=== PATIENT | female | born 1955 | race Two or more races ===

== ENCOUNTER 2024-05-29 11:22 | Outpatient (AMB) | payer OTHER, SELFPAY ==
--- NOTE | 2024-05-29 11:24 | A.OFFPC_ITS ---
Vital Signs 05/29/24 11:25 Height 5 ft 1.42 in Weight 110 lb 4 oz BMI 20.5 BP 110/60 Blood Pressure Location Lt brachial Position Sitting Pulse 61 Pulse Source Pulse Oximeter Temp 97.5 F Temp Source Temporal Artery Scan Pulse Oximetry (%) 99 Oxygen Delivery Method Room Air Intake Visit Reasons: Establish Care Intake Note: Patient is a new patient here to establish care for DM, Tremors, Knee pain, Unsteady gait. Transferring care from [facility] . Medical records have been requested and have received. Hybrid Derivatives Trader Required: Yes Hybrid Derivatives Trader Language: Multiple Effect Evaporator Operator Name: Beth (Daughter) Information Interpreted: non-clinical & clinical (pt decline hazardous waste management specialist service, prefer daughter to hazardous waste management specialist.) Industrial Spray Painter: Present Accompanied by: Daughter Allergies No Known Allergies Allergy (Verified 05/29/24 11:46) Medication List - Last Reconciled 05/29/24 by Ofelia Lacy PA-C amlodipine 5 mg PO DAILY blood sugar diagnostic (FreeStyle Lite Strips) Test blood sugar twice a day insulin glargine (Lantus Solostar U-100 Insulin) 10 units subcut BEDTIME lancets (FreeStyle Lancets) test blood sugar twice a day metformin 1,000 mg PO BID Tobacco use date assessed: 05/29/24 Fall risk assessment: No Falls in past year Last assessed Fall Risk: 05/29/24 Dental Screening Dental Screen Date: 05/29/24 Did you have a dental visit in the last 12 months?: Yes Did you have a dental problem in the last 6 months where you did not have access to dental care?: No Was dental information given to patient?: Patient has dentist HPI Establish Care HPI Details 69-year-old female coming to the office for the 1st time. Patient is not known to [facility]. Patient has a past medical history of diabetes mellitus with neuropathy, dyslipidemia and vitamin-D deficiency. Daughter provides translation for duration of this visit, formal interpretation was declined. Presenting with management of chronic conditions and addressing new complaints of knee pain and mobility issues. She has Type 2 Diabetes Mellitus with a history of medication adherence issues, as she has not taken J ardiance for the past three months, and uses insulin at a nightly dose of 10 units. Recent A1c is recorded at 7.9. She presents a history of hypertension, dyslipidemia for which atorvastatin was never received, and nicotine dependence, currently smoking one cigarette per day. Previously confirmed osteoarthritis affecting her left knee has caused persistent pain requiring evaluation for alternative pain management methods. Experiences noticeable difficulty with ambulation, which raises the need for a handicap parking placard. daughter for translation. Per [facility] Last note 10/2023 Amlodipine 5 mg, atorvastatin 40 mg, Jardiance 25 mg, Lantus Solostar 12 units nightly then increase to 15 units nightly but taking 10 units currently, metformin 1000 mg and vitamin D3 colonoscopy: 2015 repeat in 10 years mammogram: completed 2024 [facility] Surgical History H/O colonoscopy No pertinent past surgical history Social History Housing: Apartment Alcohol intake: never Patient Tobacco Use Status: Current everyday Tobacco user Tobacco use type: Cigarette Cigarette Packs Per Day: 0.25 Cigarettes Per Day: 1 e-Cigarette/Vaping Use: Never Used Second Hand Smoke Exposure: No service: No Current occupational status: employed Cognitive needs: Yes (Cane) Hearing needs: Yes Vision needs: Yes (Glasses) Female Reproductive History Menstrual control method: none Questionnaire PHQ-9 Over the last 2 weeks, how often have you been bothered by any of the following problems? 1. Little interest or pleasure in doing things: not at all 2. Feeling down, depressed, or hopeless: not at all 3. Trouble falling or staying asleep, or sleeping too much: not at all 4. Feeling tired or having little energy: not at all 5. Poor appetite or overeating: not at all 6. Feeling bad about yourself - or that you are a failure or have let yourself or your family down: not at all 7. Trouble concentrating on things, such as reading the newspaper or watching television: not at all 8. Moving or speaking so slowly that other people could have noticed. Or the opposite - being so fidgety or restless that you have been moving around a lot more than usual: not at all 9. Thoughts that you would be better off or of hurting yourself in some way: not at all Total score: 0 Depression Screening Interpretation: Negative Depression Screening Done: Yes Source: Developed by Drs. Bony Machado, Dulce Clarke, Mark Juarez and colleagues, with an educational patrice from [employer]. Thrive Questionnaire Date Thrive assessed: 05/29/24 I am a: Patient What is your living situation today?: I have a steady place to live Within the past 12 months, did the food you bought not last and you didn't have the money to get more?: Never true Within the past 12 months, did you worry whether your food would run out before you got money to buy more?: Never true Do you have trouble paying for medicines?: No Do you have trouble getting transportation to medical appointments?: Yes Do you have trouble paying your heating and electricity bill?: No Do you have trouble taking care of your child, family member or friend?: No Do you have trouble with day-to-day activities such as bathing, preparing meals, shopping, managing finances, etc.?: No Are you currently unemployed and looking for a job?: No Are you interested in more education?: Yes Please select the resources that you would like help with: Care for elder or disabled Currently or been in a relationship where the following occur: I choose not to answer THRIVE Score: 1 AUDIT C Alcohol Use Questionnaire (AUDIT-C) 1. How often do you have a drink containing alcohol?: Never Total Score: 0 RADHA-7 AMB Questionnaire RADHA-7 Date RADHA - 7 assessed: 05/29/24 Feeling nervous, anxious, or on edge: 0 = Not at all Not being able to stop or control worryin = Not at all Worrying too much about different things: 0 = Not at all Trouble relaxin = Not at all Being so restless that it is hard to sit still: 0 = Not at all Becoming easily annoyed or irritable: 0 = Not at all Feeling afraid as if something awful might happen: 0 = Not at all Total RADHA-7 score (0-4 normal; 5-9 mild; 10-14 moderate; 15-21 severe): 0 Source: Developed by Drs. Bony Machado, Dulce Clarke, Mark Juarez and colleagues, with an educational patrice from [employer]. RADHA-7 Assessment Billing RADHA-7 Assessment Tool: RADHA-7 Assessment 14001 Review of Systems Const Denies body aches, Denies chills, Denies fever(s) and Denies poor appetite Eyes Reports no additional complaints ENT Denies dizziness Card Denies chest pain, Denies lightheadedness and Denies dyspnea Resp Denies cough and Denies dyspnea GI Denies nausea and Denies vomiting Reports no additional complaints Musc Details: left knee pain Denies abnormal gait Skin/Breast Reports system reviewed and no additional complaints, except as documented Neuro Denies abnormal gait and Denies dizziness Psych Reports no additional complaints Physical exam (Primary Care) Vital Signs: Last Vital Signs Temp 97.5 F 05/29/24 11:25 Oxygen Delivery Method Room Air 05/29/24 11:25 BMI result Body Mass Index 20.5 BMI Assessment/Plan discussion: Low BMI Low, Plan discussed: lifestyle, increase calorie intake and dietary Tobacco/Smoking Status: Tobacco use Status Patient Tobacco Use Status Never used Tobacco 05/29/24 11:24 Tobacco cessation counseling provided: Yes Items discussed: Nicotine replacement Relapse Prevention: discussed extending NRT and discussed dietary, exercise and/or lifestyle changes CPT code: Less than 3 minutes Depression Screening Interpretation: Negative Currently or been in a relationship where the following occur: I choose not to answer Const General: cooperative, healthy appearing, comfortable and no acute distress Orientation/consciousness: patient oriented x3 HENMT Head: Yes normocephalic Ears: hearing grossly normal bilaterally General nose exam: Normal external nose present Eyes General: appearance normal, both eyes and all related structures Conjunctivae: conjunctivae normal Neck Neck: Yes full ROM and Yes no lymphadenopathy Resp Effort & Inspection: normal respiratory effort Auscultation: clear to auscultation bilaterally, no crackles, no rales, no rhonchi and no wheezes Cardio Rate: regular rate Rhythm: regular rhythm Skin General skin exam: no rashes or lesions noted Neuro General: patient oriented x3 Gait exam (Neuro): Normal gait present Extrem General: Yes normal to inspection, Yes full ROM and No edema Psych Affect: normal affect Attitude: cooperative Insight: Good insight present (Psych) Judgement: Good judgement present (Psych) Results AMB Hemoglobin A1c AMB Hemoglobin A1c 7.9 % Last Edit by ALLEN Toledo on 05/29/24 11:55 Coding Level of Care Code New Pt Level 4 (18947) Diagnoses Diabetes mellitus E11.9 Diabetic neuropathy E11.40 Dyslipidemia E78.5 Vitamin D deficiency E55.9 Osteoarthritis of left knee M17.12 Underweight R63.6 Poor appetite R63.0 Tobacco use disorder F17.200 Additional Codes RADHA-7 Assessment Billing - RADHA-7 Assessment Tool: RADHA-7 Assessment 11882 ([id number]) Assessment & Plan Assessment & Plan (1) Diabetes mellitus: Code(s): E11.9 - Type 2 diabetes mellitus without complications Category: Medical Plan: Decrease the amount of carbohydrates such as pasta, bread, rice, and potatoes and limit the amount of sweets. Although fruits are generally healthy they s hould be eaten in moderation as they are still high in sugar. Hemoglobin A1c goal of less than 7%. The patient currently having A1c of 7.8%. Has been without Jardiance for 3 months plan to restart on Jardiance 25 mg, continue on insulin 10 units at nighttime and metformin 1000 mg twice daily. Repeat A1c in 3 months. (2) Diabetic neuropathy: Code(s): E11.40 - Type 2 diabetes mellitus with diabetic neuropathy, unspecified Category: Medical Plan: Advised good control of blood sugars. Patient has difficulty walking long distances due to diabetic neuropathy plan to obtain handicap placard. (3) Dyslipidemia: Code(s): E78.5 - Hyperlipidemia, unspecified Category: Medical Plan: Avoid foods that are high in cholesterol such as red meat, fried foods, eggs and baked goods. Triglyceride goal of less than 150 and LDL goal of less than 100. Started on atorvastatin 40 mg. ordered for repeat blood work. (4) Vitamin D deficiency: Code(s): E55.9 - Vitamin D deficiency, unspecified Category: Medical Plan: Ordered for updated blood work, not currently taking supplementation. (5) Osteoarthritis of left knee: Code(s): M17.12 - Unilateral primary osteoarthritis, left knee Category: Medical Plan: Patient having left knee pain last note from [facility] consistent with osteoarthritis of left knee. Referral was placed to orthopedics for possible injections. (6) Underweight: Code(s): R63.6 - Underweight Category: Medical Plan: Patient has poor appetite difficulty gaining weight. Prescription for Glucerna sent to pharmacy (7) Poor appetite: Code(s): R63.0 - Anorexia Category: Medical Plan: See above (8) Tobacco use disorder: Code(s): F17.200 - Nicotine dependence, unspecified, uncomplicated Category: Medical Plan: Smoking cigarettes and the use of tobacco can be harmful. We discussed the importance of stopping and options to aid in smoking cessation. Declines the need for nicotine replacement therapy at this time. Plan I will prescribe Jardiance and atorvastatin to better manage her diabetes and cholesterol levels. Continues with 10 units of insulin at night and metformin 1000 mg twice daily. The plan includes reinforcing lifestyle modifications for her diet and smoking cessation. As her knee pain is directly affecting her mobility and quality of life, I have referred her to orthopedics to evaluate non-cortisone injections as a possible intervention, reducing the risk of increased blood glucose levels. A bone density scan has been ordered to assess osteoporosis risk, and we addressed her need for a handicap placard due to mobility difficulties. Follow-up testing for blood work is necessary prior to her next visit to monitor the effectiveness of her current treatment plan. This note was constructed using voice recognition software. While every effort has been made to ensure accuracy and director payment, still areas may have been included sometimes these areas may affect the content or meeting of the given symptoms. Total time spent caring for the patient today was 30 minutes. This includes time spent before the visit reviewing the chart, time spent during the visit, and time spent after the visit and documentation. Patient was informed and verbally consented to the use of an ambient scribe for clinic note documentation during this visit. Orders: Orders Complete Blood Count Auto Diff Today Z00.00 - Encounter for general adult medical examination without abnormal findings Free T4 (Free Thyroxine) Today Z00.00 - Encounter for general adult medical examination without abnormal findings TSH reflex Free T4 Today Z00.00 - Encounter for general adult medical examination without abnormal findings AMB Hemoglobin A1c Today E11.9 - Type 2 diabetes mellitus without complications Comprehensive Met. Panel Today Z00.00 - Encounter for general adult medical examination without abnormal findings Vitamin B12 and Folate Today Z00.00 - Encounter for general adult medical examination without abnormal findings Vitamin D 25-OH Total Today Z00.00 - Encounter for general adult medical examin ation without abnormal findings Lipid Panel Today E78.00 - Pure hypercholesterolemia, unspecified XR DEXA axial skeleton Today Z78.0 - Asymptomatic menopausal state Referrals Orthopedics Referral M17.12 - Unilateral primary osteoarthritis, left knee Medications: New atorvastatin 40 mg PO BEDTIME 90 tabs 2RF empagliflozin (Jardiance) 25 mg PO DAILY 90 tabs 1RF insulin glargine (Lantus Solostar U-100 Insulin) 10 units (0.1 mL) subcut BEDTIME 15 mL 2RF blood sugar diagnostic (FreeStyle Lite Strips) Test blood sugar twice a day 100 ea 2RF lancets (FreeStyle Lancets) test blood sugar twice a day 100 ea 2RF nut.tx.gluc.intol,lac-free,soy (Glucerna Shake oral liquid) QID with meals for supplementation 1 ea PO QID 1,422 mL 4RF R63.0 - Anorexia, R63.6 - Underweight amlodipine 5 mg PO DAILY 90 tabs 2RF metformin 1,000 mg PO BID 90 days 180 tabs 2RF
[2024-05-29 11:25] VITALS: BP 110/60; PULSE 61; TEMP 36.4; O2SAT 99; BMI 20.5
== END 2024-05-29 12:12 | disposition home or self-care (01) ==
LOC: HO.HMCH 11:23
PROVIDERS: PCP Internal Medicine
DX: E11.40 Type 2 diabetes mellitus with diabetic neuropathy, unspecified (principal); E78.5 Hyperlipidemia, unspecified; E55.9 Vitamin D deficiency, unspecified; M17.12 Unilateral primary osteoarthritis, left knee; R63.6 Underweight; R63.0 Anorexia; F17.200 Nicotine dependence, unspecified, uncomplicated

== ENCOUNTER → 2024-05-29 11:22 | Outpatient (BNVA) | payer OTHER, SELFPAY | PROVIDERS: PCP Internal Medicine | DX: E11.40 Type 2 diabetes mellitus with diabetic neuropathy, unspecified (principal); E78.5 Hyperlipidemia, unspecified; E55.9 Vitamin D deficiency, unspecified; M17.12 Unilateral primary osteoarthritis, left knee; R63.6 Underweight; R63.0 Anorexia; F17.200 Nicotine dependence, unspecified, uncomplicated; Z71.6 Tobacco abuse counseling | CPT/HCPCS: 83036; 96127; 99202 ==

== ENCOUNTER 2024-07-02 10:29 | Outpatient (REF) | payer OTHER, SELFPAY ==
--- NOTE | ~2024-07-02 | MM_ITS ---
EXAMINATION: DXA BONE DENSITY AXIAL HISTORY: Z78.0 - Asymptomatic menopausal state TECHNIQUE: [employer] Dual energy absorptiometry (DEXA) of the lumbar spine, total left hip, and femoral neck was performed. COMPARISON: There are no prior studies for comparison. FINDINGS: The bone mineral density of the lumbar spine is 1.062 with a T-score of -1.0, and a Z-score of 1.2. This is indicative of normal bone mineral density. The bone mineral density of the left total hip is 0.679 with a T-score of -2.6, and a Z-score of -0.8. This is indicative of osteoporosis. The bone mineral density of the left femoral neck is 0.625 with a T-score of -3.0, and a Z-score of -1.0. This is indicative of osteoporosis. FRACTURE RISK: The FRAX index suggests a risk of major osteoporotic fracture of 9.8%, and of hip fracture 3.2%. MM/XR DEXA axial skeleton IMPRESSION: Based on bone mineral density, and according to World Health Organization (WHO) criteria, the diagnosis is consistent with osteoporosis. All bone density values are in grams per centimeter squared (g/cm2). Statistically, 68% of repeat scans fall within 1 SD (+/- 0.010 g/cm2 for AP spine L1-L4) and 1 SD (+/- 0.012 g/cm2 for femur total) FRAX is a trademark of the [employer] Metabolic Bone Disease, a World Health Organization (WHO) Collaborating Center. Electronically signed by: Bony Villa MD 07/02/2024 11:22 AM EDT
== END 2024-07-02 10:30 | disposition home or self-care (01) ==
LOC: HO.MAMMO 10:29
DX: Z13.820 Encounter for screening for osteoporosis (principal); Z78.0 Asymptomatic menopausal state
CPT/HCPCS: 77080

== ENCOUNTER → 2024-07-02 10:33 | Outpatient (BNV) | payer OTHER, SELFPAY | PROVIDERS: Visit Provider Radiology Diagnostic Radiology | DX: E28.39 Other primary ovarian failure (principal) | CPT/HCPCS: 77080 ==

== ENCOUNTER 2024-07-09 11:09 | Outpatient (REF) | payer OTHER, SELFPAY ==
[2024-07-09 11:28] LABS: MANUAL DIFF FLAG NO
[2024-07-09 11:50] LABS: Basophils Percent Auto 0.3 % (0-2); Eosinophils Absolute Auto 0.1 X10*3/uL (0.0-0.4); Eosinophils Percent Auto 1.2 % (0-4); Hematocrit 43.3 % (37.0-47.0); Hemoglobin 14.3 g/dl (12.0-16.0); Imm Gran Abs Auto 0.03 X10*3/uL (0.00-0.03); Imm Gran Pct Auto 0.3 % (0.0-0.4); Lymphocytes Absolute Auto 2.7 X10*3/uL (1.2-4.9); Lymphocytes Percent Auto 27.9 % (20-40); Mean Corpuscular Hemoglobin 29.1 pg (27.0-33.0); Mean Corpuscular Volume 88.2 fL (80.0-98.0); Monocytes Absolute Auto 0.6 X10*3/uL (0.1-1.2); Monocytes Percent Auto 6.2 % (2-11); Neutrophils Absolute Auto 6.2 x10*3/uL (2.0-8.3); Neutrophils Percent Auto 64.1 % (45-73); Platelet Count 373 X10*3/uL (160-400); Red Blood Count 4.91 X10*6/uL (4.20-5.50); White Blood Count 9.7 X10*3/uL (4.8-10.8)
[2024-07-09 13:00] LABS: Folate 12.6 ng/mL (> or = 4.0); Vitamin B12 624 pg/mL (200-900)
[2024-07-09 13:15] LABS: Alanine Aminotransferase 19 U/L (0-31); Albumin Level 4.4 g/dL (3.5-5.0); Alkaline Phosphatase 90 U/L (39-117); Anion Gap 14 (12-20); Aspartate Amino Transferase 16 U/L (5-31); Bilirubin Total 0.3 mg/dL (0.0-1.0); Blood Urea Nitrogen 18 mg/dL (9-16); Calcium 10.1 mg/dL (8.4-10.2); Carbon Dioxide 27 mmol/L (22-29); Chloride 105 mmol/L (96-108); Cholesterol 223 mg/dL (<200); Estimated Glomerular Filt Rate > 60; Free T4 (Free Thyroxine) 1.04 ng/dL (0.71-1.85); Glucose Random 195 mg/dL (60-115); HDL Cholesterol 37 mg/dL (>40); LDL Cholesterol Calculated 147 mg/dL (<100); Potassium 4.7 mmol/L (3.3-5.1); Sodium 141 mmol/L (135-145); TSH reflex Free T4 1.75 uIU/mL (0.32-4.0); Total Protein 7.7 g/dL (6.5-8.0); Triglycerides 199 mg/dL (<150)
== END 2024-07-09 11:10 | disposition home or self-care (01) ==
LOC: HO.LAB 11:09
PROVIDERS: Visit Provider Physician Assistant
DX: Z00.00 Encounter for general adult medical examination without abnormal findings (principal); E78.00 Pure hypercholesterolemia, unspecified
CPT/HCPCS: 36415; 80053; 80061; 82306; 82607; 82746; 84439; 84443; 85025

== ENCOUNTER 2024-07-31 08:35 | Outpatient (REF) | payer OTHER, SELFPAY ==
--- NOTE | ~2024-07-31 | XR_ITS ---
CLINICAL HISTORY: M25.569 - Pain in unspecified knee 3 view left knee Comparison: None Findings: Lateral positioning of the patella with lateral tilt as can be seen with patellofemoral tracking syndrome. No acute displaced fracture. No dislocation. Mild articular surface irregularity suggestive medial patellar facet. Moderate effusion present. [place] [employer] osteoarthritis of the left knee. Degenerative changes include partially imaged contralateral knee in the frontal radiograph. No radiopaque foreign body. IMPRESSION: 1. Lerhxpgo-ga-qdcxxe osteoarthritis of the left knee. 2. Moderate effusion present. This document has been electronically signed by: John Espitia MD on 08/01/2024 22:10:00
== END 2024-07-31 08:36 | disposition home or self-care (01) ==
LOC: HO.HOSX 08:35
PROVIDERS: Visit Provider Physician Assistant
DX: M25.562 Pain in left knee (principal); M17.12 Unilateral primary osteoarthritis, left knee; E11.40 Type 2 diabetes mellitus with diabetic neuropathy, unspecified
CPT/HCPCS: 73562; 99202

== ENCOUNTER 2024-07-31 10:57 | Outpatient (AMB) | payer OTHER, SELFPAY ==
[2024-07-31 11:06] VITALS: BMI 20.5
--- NOTE | 2024-07-31 11:06 | A.OFFVIS_ITS ---
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 Patient states pain started over 5 years ago, primarily affecting the posterior aspect of the left knee, radiating down left calf. Patient complains of numbness and tingling in lower left leg. Patient reports history of multiple falls, unsure if that is contributing to her pain. Per patient report, no physical therapy, however she has taken Aleve and ibuprofen without relief, diclofenac gel with temporary relief of pain. 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 Patient states pain started over 5 years ago, primarily affecting the posterior aspect of the left knee, radiating down left calf. Patient complains of numbness and tingling in lower left leg. Patient reports history of multiple falls, unsure if that is contributing to her pain. Per patient report, no physical therapy, however she has taken Aleve and ibuprofen without relief, diclofenac gel with temporary relief of pain. [facility] Surgical History H/O colonoscopy No pertinent past surgical history Social History Housing: Apartment Alcohol intake: never Patient Tobacco Use Status: Current everyday Tobacco user Tobacco use type: Cigarette Cigarette Packs Per Day: 0.25 Cigarettes Per Day: 1 e-Cigarette/Vaping Use: Never Used Second Hand Smoke Exposure: No service: No Current occupational status: employed Cognitive needs: Yes (Cane) Hearing needs: Yes Vision needs: Yes (Glasses) Physical Exam Vital Signs: BMI result Body Mass Index 20.5 Extrem Other: There is lateral retropatellar tenderness to palpation and mild medial joint line tenderness but overall minimal. Results Reviewed Results Reviewed: Mild patellofemoral arthritis. Otherwise unremarkable radiographs Assessment & Plan Assessment & Plan (1) Osteoarthritis of left knee: Code(s): M17.12 - Unilateral primary osteoarthritis, left knee Category: Medical Plan: This is a 69-year-old woman with left knee pain. She has some patellofemoral arthritis. She also has bilateral lower extremity diabetic neuropathy. We discussed treatment options including injections and physical therapy. I do not think she is a surgical candidate at this point. She understands this. We will order the physical therapy and she may follow up as needed. (2) Diabetic neuropathy: Code(s): E11.40 - Type 2 diabetes mellitus with diabetic neuropathy, unspecified Category: Medical Plan: Plan Physical Therapy Orders: Orders XR knee LT 3V 07/31/24 M25.562 - Pain in left knee PT Evaluation and Treatment Today E11.40 - Type 2 diabetes mellitus with diabetic neuropathy, unspecified, M17.12 - Unilateral primary osteoarthritis, left knee Patient Instructions: Contact [facility] to schedule Coding Level of Care Code New Pt Level 3 (44279) Diagnoses Osteoarthritis of left knee M17.12 Diabetic neuropathy E11.40
== END 2024-07-31 12:25 | disposition home or self-care (01) ==
LOC: HO.HOS 10:58
PROVIDERS: Visit Provider Orthopaedic Surgery
DX: M17.12 Unilateral primary osteoarthritis, left knee (principal); E11.40 Type 2 diabetes mellitus with diabetic neuropathy, unspecified
CPT/HCPCS: 99203

== ENCOUNTER → 2024-07-31 11:01 | Outpatient (BNV) | payer OTHER, SELFPAY | PROVIDERS: Visit Provider Radiology Neuroradiology | DX: M17.12 Unilateral primary osteoarthritis, left knee (principal) | CPT/HCPCS: 73562 ==

== ENCOUNTER 2024-08-10 08:03 | Outpatient (AMB) | payer OTHER, SELFPAY ==
--- NOTE | 2024-08-10 08:15 | A.OFFPC_ITS ---
Vital Signs 08/10/24 08:16 Height 5 ft 1.42 in Weight 111 lb 2 oz BMI 20.7 BP 100/60 Blood Pressure Location Lt brachial Position Sitting Pulse 59 Pulse Source Pulse Oximeter Temp 96.9 F Temp Source Temporal Artery Scan Pulse Oximetry (%) 99 Oxygen Delivery Method Room Air Intake Visit Reasons: f/u DM and HLD Intake Note: Patient is here to follow up on DM, HLD. 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 prefer daughter to translate for her) Second Vp Hr Assessment: Present Accompanied by: Daughter Allergies No Known Allergies Allergy (Verified 08/10/24 08:21) Medication List - Last Reconciled 08/10/24 by Ofelia Lacy PA-C amlodipine 5 mg PO DAILY atorvastatin 80 mg PO BEDTIME blood sugar diagnostic (FreeStyle Lite Strips) Test blood sugar twice a day empagliflozin (Jardiance) 25 mg PO DAILY insulin glargine (Lantus Solostar U-100 Insulin) 10 units (0.1 mL) subcut BEDTIME lancets (FreeStyle Lancets) test blood sugar twice a day metformin 1,000 mg PO BID 90 days nut.tx.gluc.intol,lac-free,soy (Glucerna Shake oral liquid) 1 ea PO QID Tobacco use date assessed: 08/10/24 Fall risk assessment: No Falls in past year Last assessed Fall Risk: 08/10/24 Dental Screening Dental Screen Date: 05/29/24 HPI f/u DM and HLD HPI Details 69-year-old female with past medical his tory diabetes mellitus with neuropathy, dyslipidemia, tobacco use disorder and osteoporosis last seen 05/2024 coming in for follow up.? In review of the notes, patient was seen by Orthopedics 07/2024 surgical candidate in regards to osteoarthritis of left knee recommended physical therapy and follow up as needed. Daughter provides translation today for the appointment, formal interpretation was declined. Presenting for management of chronic conditions including hypertension, hyperlipidemia, and type 2 diabetes mellitus. Osteoarthritis of the knee is managed with physical therapy; injections avoided due to potential impact on blood sugar levels. Currently on amlodipine; blood pressures at home are low, leading to a reduction in medication dosage. LDL cholesterol at 147 mg/dL; atorvastatin dose increased to 80 mg. History of elevated blood sugars, A1c at 7.9% not due for A1c today. Patient denies any highs above 200 or lows below 100. [facility] Surgical History H/O colonoscopy No pertinent past surgical history Social History Housing: Apartment Alcohol intake: never Patient Tobacco Use Status: Current everyday Tobacco user Tobacco use type: Cigarette Cigarette Packs Per Day: 0.25 Cigarettes Per Day: 4 e-Cigarette/Vaping Use: Never Used Second Hand Smoke Exposure: Yes service: No Current occupational status: employed Cognitive needs: Yes (Cane) Hearing needs: Yes Vision needs: Yes (Glasses) Questionnaire Thrive Questionnaire Date Thrive assessed: 05/29/24 I am a: Patient What is your living situation today?: I have a steady place to live Within the past 12 months, did the food you bought not last and you didn't have the money to get more?: Never true Within the past 12 months, did you worry whether your food would run out before you got money to buy more?: Never true Do you have trouble paying for medicines?: No Do you have trouble getting transportation to medical appointments?: Yes Do you have trouble paying your heating and electricity bill?: No Do you have trouble taking care of your child, family member or friend?: No Do you have trouble with day-to-day activities such as bathing, preparing meals, shopping, managing finances, etc.?: No Are you currently unemployed and looking for a job?: No Are you interested in more education?: Yes Please select the resources that you would like help with: Care for elder or disabled Currently or been in a relationship where the following occur: I choose not to answer THRIVE Score: 1 RADHA-7 AMB Questionnaire RADHA-7 Date RADHA - 7 assessed: 05/29/24 Source: Developed by Drs. oBny Machado, Dulce Clarke, Mark Juarez and colleagues, with an educational patrice from [employer]. Review of Systems Const Denies body aches, Denies chills, Denies fever(s), Denies headache(s) and Denies poor appetite Eyes Reports no additional complaints ENT Denies dizziness and Denies headache(s) Card Denies chest pain, Denies lightheadedness and Denies dyspnea Resp Denies dyspnea GI Denies abdominal pain, Denies nausea and Denies vomiting Reports no additional complaints Musc Reports no additional complaints and Denies abnormal gait Skin/Breast Reports system reviewed and no additional complaints, except as documented Neuro Denies abnormal gait, Denies dizziness and Denies headache(s) Psych Reports no additional complaints Physical exam (Primary Care) Vital Signs: Last Vital Signs Temp 96.9 F 08/10/24 08:16 Oxygen Delivery Method Room Air 08/10/24 08:16 BMI result Body Mass Index 20.7 Tobacco/Smoking Status: Tobacco use Status Tobacco use date assessed 05/29/24 08/10/24 08:15 Patient Tobacco Use Status Current everyday Tobacco 08/10/24 08:20 Tobacco use type Cigarette 08/10/24 08:20 e-Cigarette/Vaping Use Never Used 08/10/24 08:20 Thrive Assessment: Date of Thrive Assessment Date Thrive assessed 05/29/24 08/10/24 08:15 Currently or been in a relationship where the following occur: I choose not to answer Const General: cooperative, healthy appearing, comfortable and no acute distress Orientation/consciousness: patient oriented x3 HENMT Head: Yes normocephalic Ears: hearing grossly normal bilaterally General nose exam: Normal external nose present Eyes General: appearance normal, both eyes and all related structures Conjunctivae: conjunctivae normal Neck Neck: Yes full ROM and Yes no lymphadenopathy Resp Effort & Inspection: normal respiratory effort Auscultation: clear to auscultation bilaterally, no crackles, no rales, no rhonchi and no wheezes Cardio Rate: regular rate Rhythm: regular rhythm Skin General skin exam: no rashes or lesions noted Neuro General: patient oriented x3 Gait exam (Neuro): Normal gait present Extrem General: Yes normal to inspection, Yes full ROM and No edema Psych Affect: normal affect Attitude: cooperative Insight: Good insight present (Psych) Judgement: Good judgement present (Psych) Coding Level of Care Code Est Pt Level 4 (19589) Diagnoses Dyslipidemia E78.5 Diabetes mellitus E11.9 Underweight R63.6 Tobacco use disorder F17.200 Hypertension I10 Assessment & Plan Assessment & Plan (1) Dyslipidemia: Code(s): E78.5 - Hyperlipidemia, unspecified Category: Medical Plan: Avoid foods that are high in cholesterol such as red meat, fried foods, eggs and baked goods. Triglyceride goal of less than 150 and LDL goal of less than 100. Recent increase in atorvastatin to 80 mg in June. Plan to repeat cholesterol in 2 months an appointment to follow (2) Diabetes mellitus: Code(s): E11.9 - Type 2 diabetes mellitus without complications Category: Medical Plan: Decrease the amount of carbohydrates such as pasta, bread, rice, and potatoes and limit the amount of sweets. Although fruits are generally healthy they should be eaten in moderation as they are still high in sugar. Hemoglobin A1c goal of less than 7%. Last A1c 7.9% she is not due today plan to follow up again in 2 months. Advised patient to bring glucometer to next visit (3) Underweight: Code(s): R63.6 - Underweight Category: Medical Plan: Healthy diet and regular exercise is encouraged. (4) Tobacco use disorder: Code(s): F17.200 - Nicotine dependence, unspecified, uncomplicated Category: Medical Plan: Smoking cigarettes and the use of tobacco can be harmful. We discussed the importance of stopping and options to aid in smoking cessation. Declining brenda atment today (5) Hypertension: Code(s): I10 - Essential (primary) hypertension Category: Medical Plan: Patient on amlodipine from last PCP her blood pressure in the office is 100/60 today. She does routinely take her blood pressures at home that are in the lower range but denies any values less than 100 systolic and 60 diastolic. Plan to decrease amlodipine to 2.5 mg today and follow up in 2 months. Bring log of blood pressures to next visit. Avoid salt intake and encourage healthy diet and regular exercise. Plan The patient will continue with physical therapy for osteoarthritis of the knee, as injections are not recommended due to potential effects on blood sugar levels. The amlodipine dosage will be reduced to 2.5 mg to manage low blood pressure readings and prevent hypotension. The atorvastatin dosage has been increased to 80 mg to address elevated LDL cholesterol levels, and cholesterol will be rechecked in three months. The patient is advised to monitor blood pressure and blood sugar levels at home, reporting any significant changes. This note was constructed using voice recognition software. While every effort has been made to ensure accuracy and tile layer supervisor, still areas may have been included sometimes these areas may affect the content or meeting of the given symptoms. Total time spent caring for the patient today was 20 minutes. This includes time spent before the visit reviewing the chart, time spent during the visit, and time spent after the visit and documentation. Patient was informed and verbally consented to the use of an ambient scribe for clinic note documentation during this visit. Orders: Orders Hemoglobin A1c Today E11.65 - Type 2 diabetes mellitus with hyperglycemia Medications: New amlodipine 2.5 mg PO DAILY 90 tabs 0RF cane As directed 1 ea 0RF E11.40 - Type 2 diabetes mellitus with diabetic neuropathy, unspecified, M17.12 - Unilateral primary osteoarthritis, left knee, M81.0 - Age-related osteoporosis without current pathological fracture Discontinued amlodipine Discontinued Reason: Patient no longer taking 5 mg PO DAILY 90 tabs 2RF
[2024-08-10 08:16] VITALS: BP 100/60; PULSE 59; TEMP 36.1; O2SAT 99; BMI 20.7
== END 2024-08-10 08:45 | disposition home or self-care (01) ==
LOC: HO.HMCH 08:04
DX: E78.5 Hyperlipidemia, unspecified (principal); E11.9 Type 2 diabetes mellitus without complications; R63.6 Underweight; F17.200 Nicotine dependence, unspecified, uncomplicated; I10 Essential (primary) hypertension

== ENCOUNTER → 2024-08-10 08:03 | Outpatient (BNVA) | payer OTHER, SELFPAY | DX: E11.40 Type 2 diabetes mellitus with diabetic neuropathy, unspecified (principal); E11.65 Type 2 diabetes mellitus with hyperglycemia; M17.12 Unilateral primary osteoarthritis, left knee; E78.5 Hyperlipidemia, unspecified; M81.0 Age-related osteoporosis without current pathological fracture; I10 Essential (primary) hypertension; R63.6 Underweight; F17.210 Nicotine dependence, cigarettes, uncomplicated | CPT/HCPCS: 99212 ==

== ENCOUNTER 2024-08-13 10:45 | Outpatient (AMB) | payer OTHER, SELFPAY ==
--- NOTE | 2024-08-13 10:47 | A.OFFVIS_ITS ---
Vital Signs 08/13/24 10:50 Height 5 ft 1.42 in Weight 112 lb 10.499 oz BMI 21.0 BP 118/58 L Blood Pressure Location Rt brachial Position Sitting Pulse 65 Pulse Source Pulse Oximeter Pulse Oximetry (%) 96 Oxygen Delivery Method Room Air Intake Visit Reasons: Age-related osteoporosis without current patholog Intake Note: New patient internally referred by PCP for Age-related Osteoporosis. Coke Drawer Hand Required: Yes Coke Drawer Hand Language: Bowling Ball Molder Services: Coke Drawer Hand Offered & Declined Accompanied by: Daughter Allergies No Known Allergies Allergy (Verified 08/13/24 10:51) Medication List - Last Reconciled 08/13/24 by Bony Garcia MD amlodipine 2.5 mg PO DAILY atorvastatin 80 mg PO BEDTIME blood sugar diagnostic (FreeStyle Lite Strips) Test blood sugar twice a day cane As directed empagliflozin (Jardiance) 25 mg PO DAILY insulin glargine (Lantus Solostar U-100 Insulin) 10 units (0.1 mL) subcut BEDTIME lancets (FreeStyle Lancets) test blood sugar twice a day metformin 1,000 mg PO BID 90 days nut.tx.gluc.intol,lac-free,soy (Glucerna Shake oral liquid) 1 ea PO QID HPI Comments Details: The patient is a 69-year-old female presenting with osteoporosis. She was diagnosed with osteoporosis following a bone density test conducted in the [place] approximately two years ago. She has not previously consulted a physician for osteoporosis nor has she taken any medications for it. The patient has no history of fractures, including hip, spine, or forearm fractures. She does not engage in weight-bearing exercises and has a smoking habit of four cigarettes per day. There is no family history of osteoporosis or hip fractures. The patient has a history of vitamin D deficiency, which was identified during initial testing. She has not been taking any vitamin D supplements. First diagnosed in 2 yrs ago.Never seen specialist before Not Received treatment in the past No history of pathologic fracture or ONJ. Has several servings of dietary calcium per day in the form of cheese, brocoli . Not Takes Calcium supplement Not Takes of Vitamin D daily. Denies ever using PPI, anticoagulant, antiepileptic or glucocorticoid medication. 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 age - nl menses Denies history of Kidney stones: Denies family history of Osteoporosis or hip fracture. UTD on dental cleanings and sees dentist every 6 months. No planned upcoming dental work or extractions. Tobacoo use 4 cigs /day . No heavy ETOH use DXA dated 07/02/24: FINDINGS: The bone mineral density of the lumbar spine is 1.062 with a T-score of -1.0, and a Z-score of 1.2. This is indicative of normal bone mineral density. The bone mineral density of the left total hip is 0.679 with a T-score of -2.6, and a Z-score of -0.8. This is indicative of osteoporosis. The bone mineral density of the left femoral neck is 0.625 with a T-score of -3.0, and a Z-score of -1.0. This is indicative of osteoporosis. FRACTURE RISK: The FRAX index suggests a risk of major osteoporotic fracture of 9.8%, and of hip fracture 3.2%. MM/XR DEXA axial skeleton IMPRESSION: Based on bone mineral density, and according to World Health Organization (WHO) criteria, the diagnosis is consistent with osteoporosis. Labs: [facility], [facility] Surgical History H/O colonoscopy No pertinent past surgical history Social History Housing: Apartment Alcohol intake: never Patient Tobacco Use Status: Current everyday Tobacco user Tobacco use type: Cigarette Cigarette Packs Per Day: 0.25 Cigarettes Per Day: 4 e-Cigarette/Vaping Use: Never Used Second Hand Smoke Exposure: Yes service: No Current occupational status: employed Cognitive needs: Yes (Cane) Hearing needs: Yes Vision needs: Yes (Glasses) Physical Exam Vital Signs: BMI result Body Mass Index 20.6 There are no Cushingoid features. Absence of blue sclera. Absence of kyphosis. Thyroid gland is of nl size and weighs 15 gms. There are no thyroid nodules palpated. Lungs CTA. Heart S1 S2 Reg R/R Abdominal exam benign. Muscle strength 5/5 . Examination of spine reveals absence of tenderness on palpation Assessment & Plan Assessment & Plan (1) Osteoporosis: Code(s): M81.0 - Age-related osteoporosis without current pathological fracture Category: Medical Plan: This is a 69-year-old female with a history of osteoporosis with partial secondary workup. Plan is to complete the secondary workup by doing a phosphorus, repeat 25 hydroxy vitamin-D, 24 hour urine for calcium and creatinine, urine immunofixation. We will ensure 1200 mg of calcium and vitamin-D supplementation 1000 IU per day. Once vitamin-D is replete and secondary workup was completed, would strongly consider the use of anabolic agent should Evenity, Tymlos or Forteo initially proceeded by an anti resorptive agent considering the very low bone density and high risk of fracture 1. Osteoporosis The patient has a T-score of -3, indicating moderate to severe osteoporosis. She has been advised to start calcium and vitamin D supplementation to support bone health. A follow-up bone density test and a 24-hour urine calcium collection are planned in two months to assess her condition further. Injectable medications that build bone density, such as Evenity , Forteo or Tymlos, may be considered based on insurance coverage and affordability. The patient is advised to quit smoking to reduce risk factors for osteoporosis. 2. Vitamin D Deficiency The patient has a history of vitamin D deficiency and has not been taking supplements. A prescription for vitamin D has been sent to the pharmacy, and her levels will be rechecked in two months. - Start taking calcium and vitamin D supplements as advised. - Schedule a follow-up appointment in two months for repeat testing. - Consider quitting smoking to improve bone health. - Monitor dietary calcium intake to ensure a total of 1200 mg daily. T I discussed with the patient the significance of her osteoporosis diagnosis, emphasizing the importance of calcium and vitamin D supplementation. We reviewed the potential treatment options, including injectable medications that build bone density, and the need for follow-up testing in two months. I advised her on the risks associated with smoking and encouraged cessation to improve bone health. We also discussed the importance of monitoring her vitamin D levels and the prescription sent to the pharmacy. The patient had an opportunity to ask questions regarding treatment plan. The patient expressed understanding and agreement with the above treatment plan. Patient was informed and verbally consented to the use of an ambient scribe for clinic note documentation during this visit. Orders: Orders Phosphorus 2 Months M81.0 - Age-related osteoporosis without current pathological fracture Vitamin D 25-OH Total 2 Months M81.0 - Age-related osteoporosis without current pathological fracture Calcium, 24 Hr Ur 2 Months M81.0 - Age-related osteoporosis without current pathological fracture Creatinine, 24 Hr Group 2 Months M81.0 - Age-related osteoporosis without cu rrent pathological fracture Immunofixation, Random Urine Today M81.0 - Age-related osteoporosis without current pathological fracture Medications: New cholecalciferol (vitamin D3) 50 mcg PO DAILY 30 caps 4RF Coding Level of Care Code New Pt Level 4 (10032) Diagnoses Osteoporosis M81.0
[2024-08-13 10:50] VITALS: BP 118/58; PULSE 65; O2SAT 96; BMI 21.0
== END 2024-08-13 11:25 | disposition home or self-care (01) ==
LOC: HO.ENCR 10:45
PROVIDERS: Visit Provider Internal Medicine Endocrinology, Diabetes & Metabolism
DX: M81.0 Age-related osteoporosis without current pathological fracture (principal)
CPT/HCPCS: 99204

== ENCOUNTER → 2024-08-13 10:45 | Outpatient (BNVA) | payer OTHER, SELFPAY | PROVIDERS: Visit Provider Internal Medicine Endocrinology, Diabetes & Metabolism | DX: M81.0 Age-related osteoporosis without current pathological fracture (principal); E55.9 Vitamin D deficiency, unspecified | CPT/HCPCS: 99202 ==

== ENCOUNTER 2024-10-14 10:14 | Outpatient (REF) | payer OTHER, SELFPAY | END 2024-10-14 10:15 | disposition home or self-care (01) | LOC: HO.LNP 10:14 | PROVIDERS: Visit Provider Internal Medicine Endocrinology, Diabetes & Metabolism | DX: Z13.89 Encounter for screening for other disorder (principal) ==

== ENCOUNTER 2024-10-16 10:01 | Outpatient (AMB) | payer OTHER, SELFPAY ==
--- NOTE | 2024-10-16 10:06 | MHC.PC.OV ---
Vital Signs 10/16/24 10:07 10/16/24 10:32 Height 5 ft 1.42 in Weight 111 lb 2 oz BMI 20.7 BP 158/62 H 132/70 Blood Pressure Location Lt brachial Lt brachial Position Sitting Sitting Pulse 60 Pulse Oximetry (%) 98 Oxygen Delivery Method Room Air Intake Visit Reasons: f/u DM and HLD Political Cartoonist Required: No Accompanied by: Daughter Allergies No Known Allergies Allergy (Verified 10/16/24 10:19) Medication List - Last Reconciled 10/16/24 by Ofelia Lacy PA-C amlodipine 2.5 mg PO DAILY atorvastatin 80 mg PO BEDTIME blood sugar diagnostic (FreeStyle Lite Strips) Test blood sugar twice a day cane As directed cholecalciferol (vitamin D3) 50 mcg PO DAILY empagliflozin (Jardiance) 25 mg PO DAILY insulin glargine (Lantus Solostar U-100 Insulin) 10 units (0.1 mL) subcut BEDTIME lancets (FreeStyle Lancets) test blood sugar twice a day metformin 1,000 mg PO BID 90 days nut.tx.gluc.intol,lac-free,soy (Glucerna Shake oral liquid) 1 ea PO QID Tobacco use date assessed: 10/16/24 Fall risk assessment: No Falls in past year Last assessed Fall Risk: 10/16/24 Dental Screening Dental Screen Date: 10/16/24 Did you have a dental visit in the last 12 months?: No Did you have a dental problem in the last 6 months where you did not have access to dental care?: No Was dental information given to patient?: No HPI f/u DM and HLD HPI Details [age] year old female with past medical history of diabetes mellitus with neuropathy, dyslipidemia, vitamin-D deficiency, osteoporosis, tobacco use disorder and hypertension last seen 07/2024 coming in for follow up. In review of the notes, patient was seen by endocrinology 07/2024 for osteoporosis ordered for updated blood work and started on vitamin-D supplementation. Daughter provides translation today for the appointment, formal interpretation was declined. Presenting with management of hypertension, diabetes, and hyperlipidemia. Managed with amlodipine 2.5 mg daily, with home monitoring showing stable readings. Managed with metformin, Jardiance, and Lantus insulin, with recent A1c increase noted. [facility], [facility] Surgical History H/O colonoscopy No pertinent past surgical history Social History Housing: Apartment Alcohol intake: never Patient Tobacco Use Status: Current everyday Tobacco user Tobacco use type: Cigarette Cigarette Packs Per Day: 0.25 Cigarettes Per Day: 4 e-Cigarette/Vaping Use: Never Used Second Hand Smoke Exposure: Yes service: No Current occupational status: employed Cognitive needs: Yes (Cane) Hearing needs: Yes Vision needs: Yes (Glasses) Questionnaire PHQ-9 Over the last 2 weeks, how often have you been bothered by any of the following problems? 1. Little interest or pleasure in doing things: not at all 2. Feeling down, depressed, or hopeless: not at all 3. Trouble falling or staying asleep, or sleeping too much: not at all 4. Feeling tired or having little energy: not at all 5. Poor appetite or overeating: not at all 6. Feeling bad about yourself - or that you are a failure or have let yourself or your family down: not at all 7. Trouble concentrating on things, such as reading the newspaper or watching television: not at all 8. Moving or speaking so slowly that other people could have noticed. Or the opposite - being so fidgety or restless that you have been moving around a lot more than usual: not at all 9. Thoughts that you would be better off or of hurting yourself in some way: not at all Total score: 0 Depression Screening Interpretation: Negative Depression Screening Done: Yes Source: Developed by Drs. Bony Machado, Dulce Clarke, Mark Juarez and colleagues, with an educational patrice from [employer]. Thrive Questionnaire Date Thrive assessed: 05/29/24 I am a: Patient What is your living situation today?: I have a steady place to live Within the past 12 months, did the food you bought not last and you didn't have the money to get more?: Never true Within the past 12 months, did you worry whether your food would run out before you got money to buy more?: Never true Do you have trouble paying for medicines?: No Do you have trouble getting transportation to medical appointments?: Yes Do you have trouble paying your heating and electricity bill?: No Do you have trouble taking care of your child, family member or friend?: No Do you have trouble with day-to-day activities such as bathing, preparing meals, shopping, managing finances, etc.?: No Are you currently unemployed and looking for a job?: No Are you interested in more education?: Yes Please select the resources that you would like help with: Care for elder or disabled Currently or been in a relationship where the following occur: I choose not to answer THRIVE Score: 1 AUDIT C Alcohol Use Questionnaire (AUDIT-C) 3. How often do you have six or more drinks on one occasion?: Never Total Score: 0 RADHA-7 AMB Questionnaire RADHA-7 Date RADHA - 7 assessed: 05/29/24 Feeling nervous, anxious, or on edge: 0 = Not at all Not being able to stop or control worryin = Not at all Worrying too much about different things: 0 = Not at all Trouble relaxin = Not at all Being so restless that it is hard to sit still: 0 = Not at all Becoming easily annoyed or irritable: 1 = Several days Feeling afraid as if something awful might happen: 0 = Not at all Total RADHA-7 score (0-4 normal; 5-9 mild; 10-14 moderate; 15-21 severe): 1 Source: Developed by Drs. Bony Machado, Dulce Clarke, Mark Juarez and colleagues, with an educational partice from [employer]. RADHA-7 Assessment Billing RADHA-7 Assessment Tool: RADHA-7 Assessment 05703 Review of Systems Const Denies body aches, Denies chills, Denies fever(s), Denies headache(s) and Denies poor appetite Eyes Reports no additional complaints ENT Denies dizziness and Denies headache(s) Card Denies chest pain, Denies edema, Denies lightheadedness and Denies dyspnea Resp Denies dyspnea GI Denies nausea and Denies vomiting Reports no additional complaints Musc Reports no additional complaints and Denies abnormal gait Skin/Breast Reports system reviewed and no additional complaints, except as documented Neuro Denies abnormal gait, Denies dizziness and Denies headache(s) Psych Reports no additional complaints Physical exam (Primary Care) Vital Signs: Last Vital Signs Pulse 60 10/16/24 10:07 BP 132/70 10/16/24 10:32 Pulse Ox 98 10/16/24 10:07 Oxygen Delivery Method Room Air 10/16/24 10:07 BMI result Body Mass Index 20.7 Tobacco/Smoking Status: Tobacco use Status Tobacco use date assessed 10/16/24 10/16/24 10:09 Patient Tobacco Use Status Current everyday Tobacco 10/16/24 10:09 Tobacco use type Cigarette 10/16/24 10:09 e-Cigarette/Vaping Use Never Used 10/16/24 10:09 PHQ-9: PHQ-9 Score PHQ-9: Total score 0 10/16/24 10:41 Depression Screening Interpretation: Negative Thrive Assessment: Date of Thrive Assessment Date Thrive assessed 05/29/24 10/16/24 10:09 Currently or been in a relationship where the following occur: I choose not to answer Const General: cooperative, healthy appearing, comfortable and no acute distress Orientation/consciousness: patient oriented x3 HENMT Head: Yes normocephalic Ears: hearing grossly normal bilaterally General nose exam: Normal external nose present Eyes General: appearance normal, both eyes and all related structures Conjunctivae: conjunctivae normal Neck Neck: Yes full ROM and Yes no lymphadenopathy Resp Effort & Inspection: normal respiratory effort Auscultation: clear to auscultation bilaterally, no crackles, no rales, no rhonchi and no wheezes Cardio Rate: regular rate Rhythm: regular rhythm Skin General skin exam: no rashes or lesions noted Neuro General: patient oriented x3 Gait exam (Neuro): Normal gait present Extrem General: Yes normal to inspection, Yes full ROM and No edema Psych Affect: normal affect Attitude: cooperative Insight: Good insight present (Psych) Judgement: Good judgement present (Psych) Results AMB Hemoglobin A1c AMB Hemoglobin A1c 8.8 % Last Edit by Martha Ramos MA on 10/16/24 10:41 Results Reviewed Results Reviewed: Laboratory Last Values Hgb A1c (Clinic) 8.8 % (4.0-6.0) H 10/16/24 10:17 Coding Level of Care Code Est Pt Level 3 (52802) Diagnoses Hypertension I10 Dyslipidemia E78.5 Diabetes mellitus E11.9 Tobacco use disorder F17.200 Additional Codes RADHA-7 Assessment Billing - RADHA-7 Assessment Tool: RADHA-7 Assessment 95408 ([id number]) Assessment & Plan Assessment & Plan (1) Hypertension: Code(s): I10 - Essential (primary) hypertension Category: Medical Plan: Continue on current blood pressure medication. Avoid salt intake and encourage healthy diet and regular exercise. At goal on the Amlodipine 2.5mg at home and in the office. (2) Dyslipidemia: Code(s): E78.5 - Hyperlipidemia, unspecified Category: Medical Plan: Avoid foods that are high in cholesterol such as red meat, fried foods, eggs and baked goods. Triglyceride goal of less than 150 and LDL goal of less than 100. Recent increase in atorvastatin to 80 mg in June. Reminded patient about blood work. (3) Diabetes mellitus: Code(s): E11.9 - Type 2 diabetes mellitus without complications Category: Medical Plan: Decrease the amount of carbohydrates such as pasta, bread, rice, and potatoes and limit the amount of sweets. Although fruits are generally healthy they should be eaten in moderation as they are still high in sugar. Hemoglobin A1c goal of less than 7%. A1c in the clinic today 8.8% (4) Tobacco use disorder: Code(s): F17.200 - Nicotine dependence, unspecified, uncomplicated Category: Medical Plan: Smoking cigarettes and the use of tobacco can be harmful. We discussed the importance of stopping and options to aid in smoking cessation. Declining treatment today Plan During the visit, we discussed the management of hypertension, diabetes, and hyperlipidemia. The patient's blood pressure is stable on current medication. Due to an increase in A1c, we decided to increase the insulin dosage to 14 units at bedtime. The patient was advised to monitor blood sugars closely and report any hypoglycemic episodes. We also discussed the need for fasting cholesterol labs to assess lipid levels. Follow-up is planned in three months to recheck A1c levels. This note was constructed using voice recognition software. While every effort has been made to ensure accuracy and attorney recruiter, still areas may have been included sometimes these areas may affect the content or meeting of the given symptoms. Total time spent caring for the patient today was 20 minutes. This includes time spent before the visit reviewing the chart, time spent during the visit, and time spent after the visit and documentation. Patient was informed and verbally consented to the use of an ambient scribe for clinic note documentation during this visit. Orders: Orders AMB Hemoglobin A1c Today E11.9 - Type 2 diabetes mellitus without complications PT Evaluation and Treatment Today E11.40 - Type 2 diabetes mellitus with diabetic neuropathy, unspecified, M17.12 - Unilateral primary osteoarthritis, left knee Medications: New [compression socks small] As directed; 15-20 mmHg 1 ea 0RF E11.40 - Type 2 diabetes mellitus with diabetic neuropathy, unspecified Changed From insulin glargine (Lantus Solostar U-100 Insulin) 10 units (0.1 mL) subcut BEDTIME 15 mL 2RF To insulin glargine (Lantus Solostar U-100 Insulin) 14 units (0.14 mL) subcut BEDTIME 15 mL 2RF Refilled nut.tx.gluc.intol,lac-free,soy (Glucerna Shake oral liquid) QID with meals for supplementation 1 ea PO QID 1,422 mL 4RF R63.0 - Anorexia, R63.6 - Underweight
[2024-10-16 10:07] VITALS: BP 158/62; PULSE 60; O2SAT 98; BMI 20.7
[2024-10-16 10:32] VITALS: BP 132/70
== END 2024-10-16 10:44 | disposition home or self-care (01) ==
LOC: HO.HMCH 10:02
DX: I10 Essential (primary) hypertension (principal); E78.5 Hyperlipidemia, unspecified; E11.9 Type 2 diabetes mellitus without complications; F17.200 Nicotine dependence, unspecified, uncomplicated

== ENCOUNTER 2024-10-16 10:01 | Outpatient (REF) | payer OTHER, SELFPAY ==
[2024-10-16 12:08] LABS: Creatinine, mg/dL 59.60
[2024-10-16 19:40] LABS: Total Volume 24 Hour Urine 300 mL
[2024-10-19 20:38] LABS: Calcium/Creatinine Ratio 156 mg/g creat (30-275); Creatinine 24Hr Urine 0.18 g/24 h (0.50-2.15)
== END 2024-10-16 10:02 | disposition home or self-care (01) ==
LOC: HO.LNP 10:01
PROVIDERS: Internal Medicine Endocrinology, Diabetes & Metabolism
DX: M81.0 Age-related osteoporosis without current pathological fracture (principal); I10 Essential (primary) hypertension; E78.5 Hyperlipidemia, unspecified; E11.9 Type 2 diabetes mellitus without complications; F17.210 Nicotine dependence, cigarettes, uncomplicated; Z79.4 Long term (current) use of insulin; Z79.84 Long term (current) use of oral hypoglycemic drugs; Z79.899 Other long term (current) drug therapy
CPT/HCPCS: 82340; 82570; 83036; 96127; 99212

== ENCOUNTER 2024-11-06 09:27 | Outpatient (REF) | payer OTHER, SELFPAY ==
[2024-11-06 10:19] LABS: Hemoglobin A1C 266.1501 umol/L; Total Hemoglobin (HGBA1C) 3541.3195 umol/L
[2024-11-06 11:27] LABS: Cholesterol 202 mg/dL (<200); HDL Cholesterol 37 mg/dL (>40); Triglycerides 152 mg/dL (<150)
== END 2024-11-06 09:28 | disposition home or self-care (01) ==
LOC: HO.LAB 09:27
PROVIDERS: Visit Provider Internal Medicine Endocrinology, Diabetes & Metabolism
DX: E11.65 Type 2 diabetes mellitus with hyperglycemia (principal); M81.0 Age-related osteoporosis without current pathological fracture; E78.00 Pure hypercholesterolemia, unspecified
CPT/HCPCS: 36415; 80061; 82306; 83036; 84100; 86335

== ENCOUNTER 2024-11-12 10:21 | Outpatient (AMB) | payer OTHER, SELFPAY ==
--- NOTE | 2024-11-12 10:29 | A.OFFVIS_ITS ---
Vital Signs 11/12/24 10:31 Height 5 ft 1.42 in Weight 113 lb 12.136 oz BMI 21.2 BP 140/60 H Blood Pressure Location Lt brachial Position Sitting Pulse 65 Pulse Source Pulse Oximeter Pulse Oximetry (%) 96 Oxygen Delivery Method Room Air Intake Visit Reasons: f/u osteoporosis Intake Note: Patient present today for Osteoporosis follow up. Communications Specialist Required: Yes Communications Specialist Language: Dessert Cup Machine Feeder Services: Communications Specialist Present Communications Specialist [place] [facility] [place] [facility] Information Interpreted: non-clinical & clinical Accompanied by: Self / Same As Patient Allergies No Known Allergies Allergy (Verified 11/12/24 10:32) Medication List - Last Reconciled 11/12/24 by Bony Garcia MD amlodipine 2.5 mg PO DAILY atorvastatin 80 mg PO BEDTIME blood sugar diagnostic (FreeStyle Lite Strips) Test blood sugar twice a day cane As directed cholecalciferol (vitamin D3) 50 mcg PO DAILY [compression socks small As directed; 15-20 mmHg ] empagliflozin (Jardiance) 25 mg PO DAILY ezetimibe (Zetia) 10 mg PO DAILY insulin glargine (Lantus Solostar U-100 Insulin) 14 units (0.14 mL) subcut BEDTIME lancets (FreeStyle Lancets) test blood sugar twice a day metformin 1,000 mg PO BID 90 days nut.tx.gluc.intol,lac-free,soy (Glucerna Shake oral liquid) 1 ea PO QID HPI Comments Details: The patient is a 69-year-old female presenting with osteoporosis. She was diagnosed with osteoporosis following a bone density test conducted in the [place] approximately two years ago. She has not previously consulted a physician for osteoporosis nor has she taken any medications for it. The patient has no history of fractures, including hip, spine, or forearm fractures. She does not engage in weight-bearing exercises and has a smoking h abit of four cigarettes per day. There is no family history of osteoporosis or hip fractures. The patient has a history of vitamin D deficiency, which was identified during initial testing. She has not been taking any vitamin D supplements. First diagnosed in 2 yrs ago.Never seen specialist before Not Received treatment in the past No history of pathologic fracture or ONJ. Has several servings of dietary calcium per day in the form of cheese, brocoli . Not Takes Calcium supplement Not Takes of Vitamin D daily. Denies ever using PPI, anticoagulant, antiepileptic or glucocorticoid m edication. 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 age - nl menses Denies history of Kidney stones: Denies family history of Osteoporosis or hip fracture. UTD on dental cleanings and sees dentist every 6 months. No planned upcoming dental work or extractions. Tobacoo use 4 cigs /day . No heavy ETOH use DXA dated 07/02/24: FINDINGS: The bone mineral density of the lumbar spine is 1.062 with a T-score of -1.0, and a Z-score of 1.2. This is indicative of normal bone mineral density. The bone mineral density of the left total hip is 0.679 with a T-score of -2.6, and a Z-score of -0.8. This is indicative of osteoporosis. The bone mineral density of the left femoral neck is 0.625 with a T-score of -3.0, and a Z-score of -1.0. This is indicative of osteoporosis. FRACTURE RISK: The FRAX index suggests a risk of major osteoporotic fracture of 9.8%, and of hip fracture 3.2%. MM/XR DEXA axial skeleton IMPRESSION: Based on bone mineral density, and according to World Health Organization (WHO) criteria, the diagnosis is consistent with osteoporosis. Labs: Secondary workup was negative PFSH Surgical History H/O colonoscopy No pertinent past surgical history Social History Housing: Apartment Alcohol intake: never Patient Tobacco Use Status: Current everyday Tobacco user Tobacco use type: Cigarette Cigarette Packs Per Day: 0.25 Cigarettes Per Day: 4 e-Cigarette/Vaping Use: Never Used Second Hand Smoke Exposure: Yes service: No Current occupational status: employed Cognitive needs: Yes (Cane) Hearing needs: Yes Vision needs: Yes (Glasses) Physical Exam Vital Signs: Last Vital Signs Pulse 65 11/12/24 10:31 BP 140/60 H 11/12/24 10:31 Pulse Ox 96 11/12/24 10:31 Oxygen Delivery Method Room Air 11/12/24 10:31 BMI result Body Mass Index 21.2 Assessment & Plan Assessment & Plan (1) Osteoporosis: Code(s): M81.0 - Age-related osteoporosis without current pathological fracture Category: Medical Plan: This is a 69-year-old female with a history of osteoporosis with negative secondary workup. Plan is to talk to the patient about starting anabolic therapy with either Evenity, Tymlos or Forteo depending on insurance approval Medications: New romosozumab-aqqg (Evenity) 210 mg (2.34 mL) subcut QMONTH 2.34 mL 11RF Coding Level of Care Code Est Pt Level 3 (49539) Diagnoses Osteoporosis M81.0
[2024-11-12 10:31] VITALS: BP 140/60; PULSE 65; O2SAT 96; BMI 21.2
== END 2024-11-12 10:52 | disposition home or self-care (01) ==
LOC: HO.ENCR 10:22
PROVIDERS: Visit Provider Internal Medicine Endocrinology, Diabetes & Metabolism
DX: M81.0 Age-related osteoporosis without current pathological fracture (principal)
CPT/HCPCS: 99213

== ENCOUNTER → 2024-11-12 10:21 | Outpatient (BNVA) | payer OTHER, SELFPAY | PROVIDERS: Visit Provider Internal Medicine Endocrinology, Diabetes & Metabolism | DX: M81.0 Age-related osteoporosis without current pathological fracture (principal) | CPT/HCPCS: 99212 ==

== ENCOUNTER 2025-01-06 10:16 | Outpatient (AMB) | payer OTHER, SELFPAY ==
--- NOTE | 2025-01-06 10:36 | MHC.PC.OV ---
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 Required: No Accompanied by: Daughter Allergies No Known Allergies Allergy (Verified 01/06/25 11:00) Medication List - Last Reconciled 01/06/25 by Ofelia Lacy PA-C amlodipine 2.5 mg PO DAILY atorvastatin 80 mg PO BEDTIME blood sugar diagnostic (FreeStyle Lite Strips) Test blood sugar twice a day cane As directed cholecalciferol (vitamin D3) 50 mcg PO DAILY [compression socks small As directed; 15-20 mmHg ] empagliflozin (Jardiance) 25 mg PO DAILY ezetimibe (Zetia) 10 mg PO DAILY insulin glargine (Lantus Solostar U-100 Insulin) 14 units (0.14 mL) subcut BEDTIME lancets (FreeStyle Lancets) test blood sugar twice a day metformin 1,000 mg PO BID 90 days nut.tx.gluc.intol,lac-free,soy (Glucerna Shake oral liquid) 1 ea PO QID pen needle, diabetic (Easy Comfort Pen [place]) As directed injects once a day teriparatide (Bonsity) 20 mcg (0.08 mL) subcut DAILY Tobacco use date assessed: 10/16/24 Fall risk assessment: No Falls in past year Last assessed Fall Risk: 10/16/24 Dental Screening Dental Screen Date: 10/16/24 Did you have a dental visit in the last 12 months?: No Did you have a dental problem in the last 6 months where you did not have access to dental care?: No Was dental information given to patient?: No HPI f/u DM and HTN HPI Details 69-year-old female with past medical history of diabetes mellitus with neuropathy, dyslipidemia, vitamin-D deficiency, osteoporosis, tobacco use disorder and hypertension last seen 10/12 coming in for follow up. In review of the notes, patient was seen by endocrinology 10/2024 for osteoporosis started on anabolic therapy with Evenity. Daughter provides translation today for the appointment, formal interpretation was declined. Presenting for a follow-up visit for management of chronic conditions. Regarding her diabetes, her HbA1c in October was 8.8%, and a recent value was noted to be 9%. She is currently taking Jardiance 25 mg, metformin twice daily, and 14 units of insulin at bedtime. Home blood glucose readings are sometimes above 150 mg/dL but do not exceed 200 mg/dL, with today's reading being 125 mg/dL; she denies any episodes of hypoglycemia below 80 mg/dL. For hyperlipidemia, her cholesterol was noted to be high in October, and she was started on Zetia, which she has been taking daily. [facility] Surgical History H/O colonoscopy No pertinent past surgical history Social History Housing: Apartment Alcohol intake: never Patient Tobacco Use Status: Current everyday Tobacco user Tobacco use type: Cigarette Cigarette Packs Per Day: 0.25 Cigarettes Per Day: 4 e-Cigarette/Vaping Use: Never Used Second Hand Smoke Exposure: Yes service: No Current occupational status: employed Cognitive needs: Yes (Cane) Hearing needs: Yes Vision needs: Yes (Glasses) Questionnaire PHQ-9 Over the last 2 weeks, how often have you been bothered by any of the following problems? 1. Little interest or pleasure in doing things: not at all 2. Feeling down, depressed, or hopeless: not at all 3. Trouble falling or staying asleep, or sleeping too much: not at all 4. Feeling tired or having little energy: not at all 5. Poor appetite or overeating: not at all 6. Feeling bad about yourself - or that you are a failure or have let yourself or your family down: not at all 7. Trouble concentrating on things, such as reading the newspaper or watching television: not at all 8. Moving or speaking so slowly that other people could have noticed. Or the opposite - being so fidgety or restless that you have been moving around a lot more than usual: not at all 9. Thoughts that you would be better off or of hurting yourself in some way: not at all Total score: 0 Depression Screening Interpretation: Negative Depression Screening Done: Yes Source: Developed by Drs. Bony Machado, Mark Wellington and colleagues, with an educational patrice from [employer]. Thrive Questionnaire Date Thrive assessed: 05/29/24 I am a: Patient What is your living situation today?: I have a steady place to live Within the past 12 months, did the food you bought not last and you didn't have the money to get more?: Never true Within the past 12 months, did you worry whether your food would run out before you got money to buy more?: Never true Do you have trouble paying for medicines?: No Do you have trouble getting transportation to medical appointments?: Yes Do you have trouble paying your heating and electricity bill?: No Do you have trouble taking care of your child, family member or friend?: No Do you have trouble with day-to-day activities such as bathing, preparing meals, shopping, managing finances, etc.?: No Are you currently unemployed and looking for a job?: No Are you interested in more education?: Yes Please select the resources that you would like help with: Care for elder or disabled Currently or been in a relationship where the following occur: I choose not to answer THRIVE Score: 1 AUDIT C Alcohol Use Questionnaire (AUDIT-C) 3. How often do you have six or more drinks on one occasion?: Never Total Score: 0 RADHA-7 AMB Questionnaire RADHA-7 Date RADHA - 7 assessed: 05/29/24 Feeling nervous, anxious, or on edge: 0 = Not at all Not being able to stop or control worryin = Not at all Worrying too much about different things: 0 = Not at all Trouble relaxin = Not at all Being so restless that it is hard to sit still: 0 = Not at all Becoming easily annoyed or irritable: 1 = Several days Feeling afraid as if something awful might happen: 0 = Not at all Total RADHA-7 score (0-4 normal; 5-9 mild; 10-14 moderate; 15-21 severe): 1 Source: Developed by Dulce Wallace Kurt Kroenke and colleagues, with an educational patrice from [employer]. RADHA-7 Assessment Billing RADHA-7 Assessment Tool: RADHA-7 Assessment 34833 Review of Systems Const Denies body aches, Denies chills, Denies fever(s), Denies headache(s) and Denies poor appetite Eyes Reports no additional complaints ENT Denies dizziness and Denies headache(s) Card Denies chest pain, Denies lightheadedness and Denies dyspnea Resp Denies dyspnea GI Denies diarrhea, Denies nausea and Denies vomiting Reports no additional complaints Musc Reports no additional complaints and Denies abnormal gait Skin/Breast Reports system reviewed and no additional complaints, except as documented Neuro Denies abnormal gait, Denies dizziness and Denies headache(s) Psych Reports no additional complaints Physical exam (Primary Care) Vital Signs: Last Vital Signs Temp 97.3 F 01/06/25 10:37 Pulse 71 01/06/25 10:37 BP 126/68 01/06/25 11:12 Pulse Ox 97 01/06/25 10:37 Oxygen Delivery Method Room Air 01/06/25 10:37 BMI result Body Mass Index 21.2 Tobacco/Smoking Status: Tobacco use Status Tobacco use date assessed 10/16/24 01/06/25 10:38 Patient Tobacco Use Status Current everyday Tobacco 01/06/25 10:38 Tobacco use type Cigarette 01/06/25 10:38 e-Cigarette/Vaping Use Never Used 01/06/25 10:38 PHQ-9: PHQ-9 Score PHQ-9: Total score 0 01/06/25 10:59 Depression Screening Interpretation: Negative Thrive Assessment: Date of Thrive Assessment Date Thrive assessed 05/29/24 01/06/25 10:38 Currently or been in a relationship where the following occur: I choose not to answer Const General: cooperative, healthy appearing, comfortable and no acute distress Orientation/consciousness: patient oriented x3 HENMT Head: Yes normocephalic Ears: hearing grossly normal bilaterally General nose exam: Normal external nose present Eyes General: appearance normal, both eyes and all related structures Conjunctivae: conjunctivae normal Neck Neck: Yes full ROM and Yes no lymphadenopathy Resp Effort & Inspection: normal respiratory effort Auscultation: clear to auscultation bilaterally, no crackles, no rales, no rhonchi and no wheezes Cardio Rate: regular rate Rhythm: regular rhythm Skin General skin exam: no rashes or lesions noted Neuro General: patient oriented x3 Gait exam (Neuro): Normal gait present Extrem General: Yes normal to inspection, Yes full ROM and No edema Psych Affect: normal affect Attitude: cooperative Insight: Good insight present (Psych) Judgement: Good judgement present (Psych) Office Procedures Flu Questionnaire Does the patient have a severe egg allergy?: No Does the patient have severe life threatening allergies?: No Does the patient have a fever or illness today?: No Has the patient ever had Guillain-[place] Syndrome?: No Has the patient ever had any past reaction to a flu shot?: No Immunizations Fluarix [id number] (PF) 45 mcg (15 mcg x 3)/0.5 mL IM syringe Performing Provider: Ofelia Lacy PA-C [facility] Administered by: ALLEN Donohue on 01/06/25 11:21 Dose Route Admin Location Dispensed Lot Number Expiration Date [facility] Attendant 0.5 mL IM Left Deltoid 0.5 mL [id number] 08/17/25 [id number] [employer] VIS Given Date VIS Provided VIS Publication Date 01/06/25 Single Vaccine 24 Eligibility Eligibility Date Funding Source Not [facility] Eligible 01/06/25 Private Coding Level of Care Code Est Pt Level 3 (78439) Diagnoses Hypertension I10 Dyslipidemia E78.5 Diabetes mellitus E11.9 Tobacco use disorder F17.200 Additional Codes RADHA-7 Assessment Billing - RADHA-7 Assessment Tool: RADHA-7 Assessment 30887 ([id number]) Assessment & Plan Assessment & Plan (1) Hypertension: Code(s): I10 - Essential (primary) hypertension Category: Medical Plan: Continue on current blood pressure medication. Avoid salt intake and encourage healthy diet and regular exercise. At goal on the Amlodipine 2.5mg at home and in the office. (2) Dyslipidemia: Code(s): E78.5 - Hyperlipidemia, unspecified Category: Medical Plan: Avoid foods that are high in cholesterol such as red meat, fried foods, eggs and baked goods. Triglyceride goal of less than 150 and LDL goal of less than 100. Recent increase in atorvastatin to 80 mg in June and Zetia added to medication regimen in October. Plan for repeat blood work. (3) Diabetes mellitus: Code(s): E11.9 - Type 2 diabetes mellitus without complications Category: Medical Plan: The patient's diabetes is uncontrolled, with a recent HbA1c of 9% and home blood glucose readings sometimes exceeding 150 mg/dL. She is currently on maximum doses of oral medications, including Jardiance 25 mg and metformin twice daily. The plan is to increase her bedtime insulin from 14 units to 16 units to improve glycemic control. She was instructed to monitor for and report any signs of hypoglycemia. We will repeat her HbA1c next month, and if it remains elevated, a new medication will be considered. Prescriptions for test strips and lancets were also provided. Given the difficulty managing her sugars despite a good diet plan to add blood work to test for type I DM (4) Tobacco use disorder: Code(s): F17.200 - Nicotine dependence, unspecified, uncomplicated Category: Medical Plan: Smoking cigarettes and the use of tobacco can be harmful. We discussed the importance of stopping and options to aid in smoking cessation. Plan to trial nicotine patches Plan This note was constructed using voice recognition software. While every effort has been made to ensure accuracy and associate web developer, still areas may have been included sometimes these areas may affect the content or meeting of the given symptoms. Total time spent caring for the patient today was 20 minutes. This includes time spent before the visit reviewing the chart, time spent during the visit, and time spent after the visit and documentation. Patient was informed and verbally consented to the use of an ambient scribe for clinic note documentation during this visit. Orders: Orders Hemoglobin A1c Today E11.65 - Type 2 diabetes mellitus with hyperglycemia Influenza [id number] Immunization Today Z23 - Encounter for immunization C Peptide Today E11.9 - Type 2 diabetes mellitus without complications Insulin Auto Antibody Today E11.9 - Type 2 diabetes mellitus without complications Glutamic acid decarboxylase Ab Today E11.9 - Type 2 diabetes mellitus without complications Medications: New nicotine 1 patch transdermal DAILY 28 ea 0RF Changed From insulin glargine (Lantus Solostar U-100 Insulin) 14 units (0.14 mL) subcut BEDTIME 15 mL 2RF To insulin glargine (Lantus Solostar U-100 Insulin) 16 units (0.16 mL) subcut BEDTIME 15 mL 2RF Refilled blood sugar diagnostic (FreeStyle Lite Strips) Test blood sugar twice a day 100 ea 2RF lancets (FreeStyle Lancets) test blood sugar twice a day 100 ea 2RF
[2025-01-06 10:37] VITALS: BP 120/90; PULSE 71; TEMP 36.3; O2SAT 97; BMI 21.2
[2025-01-06 11:12] VITALS: BP 126/68
== END 2025-01-06 11:16 | disposition home or self-care (01) ==
LOC: HO.HMCH 10:17
DX: I10 Essential (primary) hypertension (principal); E78.5 Hyperlipidemia, unspecified; E11.9 Type 2 diabetes mellitus without complications; F17.200 Nicotine dependence, unspecified, uncomplicated; Z23 Encounter for immunization

== ENCOUNTER → 2025-01-06 10:16 | Outpatient (BNVA) | payer OTHER, SELFPAY | DX: Z23 Encounter for immunization (principal); I10 Essential (primary) hypertension; E78.5 Hyperlipidemia, unspecified; E11.9 Type 2 diabetes mellitus without complications; F17.210 Nicotine dependence, cigarettes, uncomplicated | CPT/HCPCS: 90471; 90656; 96127; 99212 ==